=== PATIENT | female | born 1980 | race Caucasian/White ===

== ENCOUNTER 2016-05-30 23:50 | Emergency (ER) | payer SELFPAY ==
[~2016-05-30 23:50] MED LIST: ALBUTEROL17 G1 IH; ALBUTEROL17 GM; ALBUTEROL17 GM BC; BACTRIM DS TABL1 TA1 PO; BACTRIM DS TABL1 TAB PO; CLARITIN10 MG PO; CORTIZONE-10 AN28 GM TOP; DOXYCYCLINE150 MG PO; FLAGYL PO; FLEXERIL10 MG PO; HYDROCORTISONE28 GM TOP; LORTAB 10-5001 EACH PO; ORUDIS75 M1 PO; PERCOCET 5-3251 TAB PO; PREDNISONE1 MG PO; PYRIDIUM PO; ROBITUSSIN DAC PO; RONDEC-DM SYRU120 ML PO; VICODIN 5/1 TAB 5/50 PO; ZITHROMAX; ZITHROMAX PO; ZITHROMAX1 G/PKT PO
[2016-05-30 23:57] LABS: URINE SOURCE CLEAN CATCH
[2016-05-31 00:05] LABS: URINE APPEARANCE CLEAR; URINE BILIRUBIN NEG (NEG); URINE BLOOD NEG (NEG); URINE COLOR YELLOW; URINE GLUCOSE NEG (NEG); URINE KETONE NEG (NEG); URINE LEUKOCYTE ESTERASE 2+ (NEG); URINE NITRATE NEG (NEG); URINE PH 5.5 (5-8); URINE PROTEIN NEG (NEG); URINE SPECIFIC GRAVITY 1.012 (1.003-1.035); URINE UROBILINOGEN 0.2 MG/DL (NEG)
[2016-05-31 00:06] LABS: CULTURE INDICATED? YES; URBCS1 AUWI 0-2 /[HPF] (0-2); URINE BACTERIA AUWI NEG (NEGATIVE); URINE SQUAMOUS EPITHELIAL CELL FEW /[HPF]
[2016-06-04 20:11] LABS: CHLAMYDIA TRACH Not Detected (Not Detected); N GONOR Not Detected (Not Detected)
== END 2016-05-31 00:28 | disposition home or self-care (01) ==
LOC: CED 23:50
PROVIDERS: Emergency Medicine
DX: N72 Inflammatory disease of cervix uteri (principal); N89.8 Other specified noninflammatory disorders of vagina; F17.210 Nicotine dependence, cigarettes, uncomplicated
CPT/HCPCS: 81003; 84703; 87086; 87491; 87591; 87808; 87905; 96372; 99284; J0696

== ENCOUNTER 2016-08-09 07:42 | Emergency (ER) | payer OTHER | END 2016-08-09 08:28 | disposition home or self-care (01) | LOC: CFTX 07:42 → CED 07:42 → CFTX 08:20 | DX: J06.9 Acute upper respiratory infection, unspecified (principal); J45.909 Unspecified asthma, uncomplicated; F17.210 Nicotine dependence, cigarettes, uncomplicated; Z98.51 Tubal ligation status | CPT/HCPCS: 87651; 99282 ==

== ENCOUNTER 2016-10-11 05:43 | Emergency (ER) | payer OTHER ==
--- NOTE | ~2016-10-11 | EKG ---
PATIENT: AMY MARTINEZ UNIT #: [id number] Ventricular Rate: 69 BPM Atrial Rate: 69 BPM P-R Interval: 142 ms QRS Duration: 88 ms Q-T Interval: 456 ms QTC Calculation(Bezet): 488 ms P [place]: 34 degrees Calculated R [place]: 3 degrees Calculated T [place]: 25 degrees Diagnosis Line: Normal sinus rhythm Diagnosis Line: Normal ECG Diagnosis Line: No previous ECGs available Diagnosis Line: Confirmed by DOLORES SNEED MD ([id number]) on Diagnosis Line: 10/12/2016 10:34:47 AM INTERPRETING MD: NAREN MYLES
--- NOTE | ~2016-10-11 | CR63 ---
[facility] A Service of [facility] RADIOLOGY TEXT RESULTS PATIENT: AMY MARTINEZ LOCATION: [facility] : [birth year] UNIT #: [id number] AGE: [address]: Willy Briggs DO SEX: F ORDER DR: [id number] [facility] [address] [place], [place] [address] [id number] E MR#: [id number] Acc #: [id number] NAME: AMY MARTINEZ : 1980 SEX: F STUDY DATE/TIME: 10/11/2016 8:40 UNIT: [facility] ROOM: STUDY DESCRIPTION: CR Chest 2 View Attending Physician: Willy Briggs D.O. Ordering Physician: Willy Briggs D.O. Primary Care Physician: Brandon Pradhan M.D. MEDICAL IMAGING REPORT This report is preliminary unless electronic signature is present EXAM Chest x-ray. HISTORY Shortness of breath, vomiting and dizziness beginning last night. TECHNIQUE Two views of the chest were obtained and compared with 07/31/2010. FINDINGS PA and lateral examination of the chest upright shows a good expansion of the parenchyma with a normal distribution of the pulmonary vascularity. There is no indication of congestion, effusion, infiltrate, tumor, or nodular density. The pleural reflections and diaphragmatic contours are normal. The cardiac silhouette and mediastinal anatomy is within normal limits. IMPRESSION Normal chest. Dictated by... Delano Garcia M.D. THIS IS AN ELECTRONICALLY VERIFIED REPORT Delano Garcia M.D. at 10/11/2016 4:40 PM RLF/jaiden TD: 10/11/2016 09:42 JOB #: [id number] MEDICAL IMAGING REPORT [facility] A Service [facility] RADIOLOGY TEXT RESULTS PATIENT: AMY MARTINEZ LOCATION: [facility] : 78 UNIT #: [id number] AGE: [address]: Willy Briggs DO SEX: F ORDER DR: Page 1 of 1 COPY
[2016-10-11 06:56] LABS: URINE SOURCE CLEAN CATCH
[2016-10-11 07:02] LABS: URINE APPEARANCE CLEAR; URINE BILIRUBIN NEG (NEG); URINE BLOOD NEG (NEG); URINE COLOR YELLOW; URINE GLUCOSE NEG (NEG); URINE KETONE NEG (NEG); URINE LEUKOCYTE ESTERASE NEG (NEG); URINE NITRATE NEG (NEG); URINE PROTEIN NEG (NEG); URINE SPECIFIC GRAVITY 1.006 (1.003-1.035); URINE UROBILINOGEN 0.2 MG/DL (NEG)
[2016-10-11 07:04] LABS: CULTURE INDICATED? NO
[2016-10-11 07:18] LABS: POC - CKMB <1.0 ng/mL (0.0-7.9); POC - TROPONIN <0.05 ng/mL (<=0.05)
[2016-10-11 07:20] LABS: ALBUMIN SERUM 3.9 g/dL (3.5-5.0); BILIRUBIN, DIRECT 0.1 mg/dL (0.0-0.2); BILIRUBIN,INDIRECT 0.8 mg/dL (0.0-0.9); BILIRUBIN,TOTAL 0.9 mg/dL (0.2-2.0); BUN/CREATININE RATIO 11.42; CREATININE SERUM 0.7 mg/dL (0.6-1.4); GLOM FILT RATE Estimated 110.7 mL/min (>60); PROTEIN TOTAL SERUM 7.3 g/dL (6.0-8.3)
[2016-10-11 07:49] LABS: BASOPHIL% 0.3 % (0-2.5); EOSINOPHIL# 0.1 X10e3 (0-0.7); EOSINOPHIL% 0.6 % (0.0-7.0); HEMATOCRIT 44.6 % (35.0-45.0); HEMOGLOBIN 14.8 gm/dL (12.0-16.0); LYMPHOCYTE# 2.7 X10e3 (1.0-3.5); MEAN CELL VOLUME 87.2 FL (83-96); MEAN CORPUSCULAR HEMOGLOBIN 28.9 PG (28-34); MEAN CORPUSCULAR HGB CONC 33.2 g/dL (30-36); MEAN PLATELET VOLUME 10.2 FL (6.5-11.5); MONOCYTE% 7.7 % (3.0-12.0); NEUTROPHIL# 8.6 X10e3 (1.5-7.1); NEUTROPHIL% 69.4 % (40-75); PLATELET COUNT 161 X10e3 (140-420); RED BLOOD COUNT 5.12 X10e (3.90-5.30); RED CELL DISTRIBUTION WIDTH 13.7 % (11.0-15.5); WHITE BLOOD COUNT 12.4 X10e3 (4.0-10.5)
[2016-10-11 07:50] LABS: DIFF IND NO
== END 2016-10-11 09:50 | disposition home or self-care (01) ==
LOC: CED 05:43
PROVIDERS: Emergency Medicine
DX: H66.91 Otitis media, unspecified, right ear (principal); H60.91 Unspecified otitis externa, right ear; F17.210 Nicotine dependence, cigarettes, uncomplicated
CPT/HCPCS: 36415; 71020; 80048; 80076; 81003; 82553; 83690; 84484; 84703; 85025; 85379; 93005; 94640; 96374; 96375; 99283; J0696; J1885; J2930

== ENCOUNTER → 2016-11-13 | Outpatient (CLI) | payer OTHER | END | disposition home or self-care (01) | LOC: CRC 09:47 | DX: J44.9 Chronic obstructive pulmonary disease, unspecified (principal); F17.210 Nicotine dependence, cigarettes, uncomplicated | CPT/HCPCS: 94060; 94726; 94729 ==

== ENCOUNTER 2016-12-11 07:27 | Emergency (ER) | payer OTHER ==
[~2016-12-11] VITALS: Ht 175.3 cm; Wt 88.9 kg
--- NOTE | ~2016-12-11 | CR72 ---
[facility] A Service of [facility] RADIOLOGY TEXT RESULTS PATIENT: AMY MARTINEZ LOCATION: [place] : 78 UNIT #: [id number] AGE: [address]: NAREN BORGES SEX: F ORDER DR: [id number] [facility] [address] [place], [place] [address] [id number] E MR#: [id number] Acc #: [id number] NAME: AMY MARTINEZ. : 1980 SEX: F STUDY DATE/TIME: 12/11/2016 09:12 UNIT: [facility] ROOM: STUDY DESCRIPTION: CR Chest Single View Portable Attending Physician: Naren Borges Aprn Ordering Physician: Naren Borges Aprn Primary Care Physician: Brandon Pradhan M.D. MEDICAL IMAGING REPORT This report is preliminary unless electronic signature is present EXAM Chest portable 12/11/2016 09:12 hours. HISTORY 36-year-old woman with cough and sinus pressure and shortness of air for 4 days. COMPARISON 10/11/2016. FINDINGS Single portable upright chest demonstrates slightly lower lung volumes. The cardiac, mediastinal and hilar contours are normal. There is no acute pulmonary density or pleural effusion. IMPRESSION Slightly lower lung volumes than on 10/11/2016. No acute cardiopulmonary findings. No pleural effusion or pneumothorax. Dictated by... Leatha Cardoso M.D. THIS IS AN ELECTRONICALLY VERIFIED REPORT Leatha Cardoso M.D. at 12/12/2016 9:26 AM SMM/gz TD: 12/11/2016 16:55 JOB #: [id number] MEDICAL IMAGING REPORT Page 1 of 1 COPY
== END 2016-12-11 10:10 | disposition home or self-care (01) ==
LOC: CFTX 07:27 → CED 07:27 → CFTX 09:03
DX: J06.9 Acute upper respiratory infection, unspecified (principal); J44.9 Chronic obstructive pulmonary disease, unspecified; F17.210 Nicotine dependence, cigarettes, uncomplicated; Z98.51 Tubal ligation status
CPT/HCPCS: 71010; 99283